=== PATIENT | female | born 1970 | race Caucasian/White ===

== ENCOUNTER 2017-11-10 10:51 | Outpatient (CLI) | payer BC | END 2017-11-10 10:52 | disposition home or self-care (01) | LOC: BICMAMMO 10:51 | PROVIDERS: ATTEND Obstetrics & Gynecology | DX: Z12.31 Encounter for screening mammogram for malignant neoplasm of breast (principal); Z85.820 Personal history of malignant melanoma of skin; Z98.82 Breast implant status | CPT/HCPCS: 77063; 77067 ==

== ENCOUNTER 2019-12-06 09:12 | Outpatient (CLI) | payer BC ==
--- NOTE | 2019-12-06 11:48 | MMO ---
Bilateral MAMMO Bilat Screen [facility]. CLINICAL HISTORY: Patient is 49 years old and is seen for screening. The patient has no family history of breast cancer. The patient has a history of Skin cancer. The patient has a history of bilateral Implants in 2010. VIEWS: The views performed were: bilateral craniocaudal with tomosynthesis and bilateral mediolateral oblique with tomosynthesis. FILMS COMPARED: The present examination has been compared to prior imaging studies performed at [facility] on 10/15/2014, 10/15/2015, 10/14/2016 and 11/10/2017. This study has been interpreted with the assistance of computer-aided detection. MAMMOGRAM FINDINGS: The breasts are heterogeneously dense, which could obscure a lesion on mammography. There are no suspicious masses, suspicious calcifications, or new areas of architectural distortion. Normal implants are present. IMPRESSION: THERE IS NO MAMMOGRAPHIC EVIDENCE OF MALIGNANCY. A ROUTINE FOLLOW-UP MAMMOGRAM IN 1 YEAR IS RECOMMENDED. THE RESULTS OF THIS EXAM WERE SENT TO THE PATIENT. ACR BI-RADS Category 1 - Negative MAMMOGRAPHY NOTE: 1. A negative mammogram report should not delay a biopsy if a dominant of clinically suspicious mass is present. 2. Approximately 10% to 15% of breast cancers are not detected by mammography. 3. Adenosis and dense breasts may obscure an underlying neoplasm. Reported by: CALIXTO CARCAMO MD Electonically Signed: [id number]
== END 2019-12-06 09:13 | disposition home or self-care (01) ==
LOC: BICMAMMO 09:12
PROVIDERS: ATTEND Obstetrics & Gynecology
DX: Z12.31 Encounter for screening mammogram for malignant neoplasm of breast (principal); Z85.828 Personal history of other malignant neoplasm of skin; Z98.82 Breast implant status
CPT/HCPCS: 77063; 77067

== ENCOUNTER 2020-04-17 12:39 | Outpatient (CLI) | payer BC ==
--- NOTE | 2020-04-17 14:40 | CT ---
CT ABDOMEN AND PELVIS WITH IV CONTRAST 04/17/2020 CLINICAL INFORMATION: Follow-up enlarged abdominal lymph nodes. Left-sided abdominal pain. COMPARISON: 01/23/2020 Technique: Multiple contiguous axial CT images are obtained through the abdomen and pelvis with IV contrast. Cor onal reformatted images are provided. FINDINGS: Lower Chest: Lung bases are clear. Vessels: Abdominal aorta is normal in caliber. Abdomen: Portal vein:Patent Gallbladder: Within normal limits for CT imaging. Liver: within normal limits. Spleen: within normal limits. Pancreas: within normal limits. Adrenals: within normal limits. Kidneys: within normal limits. Bowel: Opacified loops of small bowel are normal in caliber. A moderate amount of retained fecal mate rial is seen throughout the colon with feculent type material also seen in the distal loops of small bowel, but these loops of bowel are nondilated. Appendix: The appendix is visualized and normal in caliber. Peritoneum: No ascites or free air; no fluid collection. Mesentery and Retroperitoneum: Again noted are multiple enlarged left para-aortic lymph nodes majorit y of which demonstrate low attenuation areas centrally and are suggestive of necrotic lymph nodes. Size and confluence of the left para-aortic lymph nodes is overall similar to the prior exam. No new enlarged lymph nodes are seen within the abdomen or pelvis. Abdominal Wall: Scarring in the soft tissues anterior pelvis. Pelvis: Reproductive Organs: Evidence of hysterectomy. Bladder: within normal limits. Bones: No suspicious lytic or sclerotic osseous lesions. IMPRESSION: 1. Left para-aortic lymphadenopathy with multiple necrotic and confluent lymph nodes seen. Metastatic disease is diagnosis of exclusion. Treated lymphoma can result in necrotic lymphadenopathy. Infectious or inflammatory process is a possibility, but there has been no interval change in necroti c lymphadenopathy compared to study obtained greater than 2 months ago. 2. Constipation. 3. Hysterectomy.
[2020-04-17] MEDS ORDERED: Iopamidol 370 76% 100 ML VIAL ONE (15:08)
[2020-04-17] MEDS ORDERED: Iopamidol 370 76% 50 ML VIAL FS ONE (15:08)
== END 2020-04-17 12:40 | disposition home or self-care (01) ==
LOC: CT 12:39
DX: R59.0 Localized enlarged lymph nodes (principal); R19.03 Right lower quadrant abdominal swelling, mass and lump; K59.00 Constipation, unspecified; Z90.710 Acquired absence of both cervix and uterus
CPT/HCPCS: 74177; Q9967

== ENCOUNTER 2020-05-27 08:21 | Day surgery (SDC) | payer BC ==
[2020-05-26 10:39] VITALS: BMI 23.6
[~2020-05-27 08:21] MED LIST: FLU VACC QS2020-21(6MOS UP)/PF 60 MCG/0.5 ML SYRINGE IM ONE
[2020-05-27 08:44] LABS: #Eosinphils 0.1 thou/uL (0.0-0.7); #Lymphocytes 1.6 thou/uL (1.20-3.40); #Monocytes 0.6 thou/uL (0.11-0.59); #Neutrophils 2.7 thou/uL (1.40-6.50); %Basophils 0.7 % (0.0-1.0); %Eosinophils 1.1 % (0.0-10.0); %Lymphocytes 31.8 % (21.0-51.0); %Monocytes 11.5 % (0.0-10.0); %Neutrophils 54.9 % (42.0-75.0); Hemoglobin 14.2 g/dL (12.0-16.0); Mean Corpuscular HGB CONC 32.9 g/dL (32.0-36.0); Mean Corpuscular Hemoglobin 31.3 pg (27.0-31.0); Mean Corpuscular Volume 95.1 fL (78.0-98.0); Mean Platelet Volume 7.4 fL (7.4-10.4); Platelet Count 191 thou/uL (130-400); RBC Distribution Width 12.1 % (11.5-14.5); Red Blood Cell (RBC) Count 4.53 mill/uL (4.20-5.40); White Blood Cell (WBC) Count 4.9 thou/uL (4.8-10.8)
[2020-05-27 08:50] LABS: INR-International Normal Ratio 1.1; PTT 31.5 sec (22.9-36.1); Prothrombin Time 14.1 sec (12.0-14.7)
[2020-05-27 09:55] VITALS: BP 93/62; TEMP 98
[2020-05-27] MEDS ORDERED: Fentanyl 100 MCG/2 ML VIAL ONE (09:56)
[2020-05-27] MEDS ORDERED: Sodium Bicarbonate 2.5 MEQ/5 ML VIAL ONE (09:56)
[2020-05-27] MEDS ORDERED: Midazolam HCl 2 mg/2 ml Vial ONE (10:05)
--- NOTE | 2020-05-27 18:53 | CT ---
PROCEDURE: Attempted CT-guided percutaneous biopsy and fine-needle aspiration of an enlarged left para-aortic ly mph node PROVIDED CLINICAL HISTORY: Patient reports history of melanoma. Patient also with recent history of right ovarian torsion with b enign mass in right ovary. Prior CT examinations demonstrated persistence of low density area in a left periaortic location. Biopsy was requested COMPARISON: CT scans of the abdomen on 04/17/2020 and 01/23/2020 TECHNIQUE: The procedure including the risks and complications were explained to the patient, and informed conse nt was obtained. The patient was placed on the CT scan table in the prone position. A limited noncontrasted CT scan was obtained through the abdomen with grid localizer in place. An area was hayden ed and then meticulously prepped and draped in usual sterile fashion. The skin and subcutaneous tissues were infiltrated with buffered 1% lidocaine for local anesthesia at the intended puncture sit e. A 19-gauge guide needle was advanced followed by axial noncontrasted CT images. This was repeated unt il the needle was adjacent to the low density left para-aortic structure. Utilizing coaxial technique, a 20-gauge core needle biopsy specimen was performed. However, no tissue was obtained. A s econd biopsy was attempted, but again no material was obtained. As a result, a total of 2 fine-needle aspiration specimens were obtained utilizing a 22-gauge needle and coaxial technique. Aga in no material or fluid was able to be aspirated. Only tiny amount of serosanguineous fluid was aspirated. Touch prep did not demonstrate cellular material. The needle was removed, and hemostasis was achieved with direct pressure. The patient tolerated the p rocedure well and without immediate complication. Patient was transported to radiology nurses holding area for further monitoring prior to discharge. IMPRESSION: 1. Hypodense tubular appearing structure in a left para-aortic location. Prior studies suggested lymp hadenopathy. 2. CT-guided percutaneous biopsy and fine-needle aspiration of a left para-aortic low-density structu re was unsuccessful. Review of prior CT examinations demonstrated interval decrease in size of the left retrocrural para-aortic structure between studies of 01/23/2020 and 04/17/2020 with interval enlar gement of this structure on today's examination when compared to study on 04/17/2020. This structure does demonstrate fluid attenuation, and post fine-needle aspiration images do demonstrate g as within the nondependent portion of this structure suggesting that this is actually fluid as opposed to soft tissue structure. This tubular appearing structure is worrisome for a dilated lymphat ic channel as opposed to multiple contiguous enlarged lymph nodes as suggested on prior study. A lymphatic malformation is a possibility as well. MRI abdomen is recommended with and without IV contr ast. 3. Above findings were discussed with Maranda Hopkins, nurse practitioner at the [facility] on 05/27/2020 at 1624 hours.
--- NOTE | 2020-05-28 15:27 | CT ---
PROCEDURE: Attempted CT-guided percutaneous biopsy and fine-needle aspiration of an enlarged left para-aortic ly mph node PROVIDED CLINICAL HISTORY: Patient reports history of melanoma. Patient also with recent history of right ovarian torsion with b enign mass in right ovary. Prior CT examinations demonstrated persistence of low density area in a left periaortic location. Biopsy was requested COMPARISON: CT scans of the abdomen on 04/17/2020 and 01/23/2020 TECHNIQUE: The procedure including the risks and complications were explained to the patient, and informed conse nt was obtained. The patient was placed on the CT scan table in the prone position. A limited noncontrasted CT scan was obtained through the abdomen with grid localizer in place. An area was hayden ed and then meticulously prepped and draped in usual sterile fashion. The skin and subcutaneous tissues were infiltrated with buffered 1% lidocaine for local anesthesia at the intended puncture sit e. A 19-gauge guide needle was advanced followed by axial noncontrasted CT images. This was repeated unt il the needle was adjacent to the low density left para-aortic structure. Utilizing coaxial technique, a 20-gauge core needle biopsy specimen was performed. However, no tissue was obtained. A s econd biopsy was attempted, but again no material was obtained. As a result, a total of 2 fine-needle aspiration specimens were obtained utilizing a 22-gauge needle and coaxial technique. Aga in no material or fluid was able to be aspirated. Only tiny amount of serosanguineous fluid was aspirated. Touch prep did not demonstrate cellular material. The needle was removed, and hemostasis was achieved with direct pressure. The patient tolerated the p rocedure well and without immediate complication. Patient was transported to radiology nurses holding area for further monitoring prior to discharge. IMPRESSION: 1. Hypodense tubular appearing structure in a left para-aortic location. Prior studies suggested lymp hadenopathy. 2. CT-guided percutaneous biopsy and fine-needle aspiration of a left para-aortic low-density structu re was unsuccessful. Review of prior CT examinations demonstrated interval decrease in size of the left para-aortic structure between studies of 01/23/2020 and 04/17/2020 with interval enlargement of th is structure on today's examination when compared to study on 04/17/2020. This structure does demonstrate fluid attenuation, and post fine-needle aspiration images do demonstrate gas within the n ondependent portion of this structure suggesting that this is actually fluid as opposed to soft tissue structure. This tubular appearing structure is worrisome for a dilated lymphatic channel as op posed to multiple contiguous enlarged lymph nodes as suggested on prior study. A lymphatic malformation is a possibility as well. MRI abdomen is recommended with and without IV contrast. 3. Above findings were discussed with Maranda Hopkins, nurse practitioner at the [facility] clinic on 05/27/2020 at 1624 hours. Transcribed Date/Time: 05/28/2020 3:26 PM
== END 2020-05-27 12:55 | disposition home or self-care (01) ==
LOC: CT 08:21
PROVIDERS: ATTEND Nurse Practitioner Family
PROC: 07BD3ZX Excision of Aortic Lymphatic, Percutaneous Approach, Diagnostic (ICD-10-PCS; principal; 2020-05-27)
PROC: BR29ZZZ Computerized Tomography (CT Scan) of Lumbar Spine (ICD-10-PCS; principal; 2020-05-27)
DX: D36.0 Benign neoplasm of lymph nodes (principal); E03.9 Hypothyroidism, unspecified; Z79.899 Other long term (current) drug therapy
CPT/HCPCS: 36415; 71250; 77002; 85025; 85610; 85730; 88172; 88173; 88177; 88305; 88333; 88334; J2250; J3010

== ENCOUNTER 2020-12-15 10:40 | Outpatient (CLI) | payer BC | END 2020-12-15 10:41 | disposition home or self-care (01) | LOC: BICMAMMO 10:40 | PROVIDERS: ATTEND Obstetrics & Gynecology | DX: Z12.31 Encounter for screening mammogram for malignant neoplasm of breast (principal); Z98.82 Breast implant status; Z85.820 Personal history of malignant melanoma of skin | CPT/HCPCS: 77063; 77067 ==

== ENCOUNTER 2025-02-25 14:27 | Outpatient (CLI) | payer BC | END 2025-02-25 14:28 | disposition home or self-care (01) | LOC: BICMAMMO 14:27 | PROVIDERS: ATTEND Family Medicine | DX: Z12.31 Encounter for screening mammogram for malignant neoplasm of breast (principal); N64.89 Other specified disorders of breast; Z80.3 Family history of malignant neoplasm of breast; Z85.820 Personal history of malignant melanoma of skin; Z98.82 Breast implant status | CPT/HCPCS: 77063; 77067 ==